=== PATIENT | male | born 1995 | race Caucasian/White ===

== ENCOUNTER 2021-01-11 12:10 | Emergency (ER) | payer SELFPAY ==
[2021-01-11] MEDS ORDERED: HALOPERIDOL 5 MG/ML VIAL IVP ONE (13:23)
[2021-01-11] MEDS ORDERED: HYDROmorphone 1 MG/ML CARPUJECT IVP STA (13:23)
[2021-01-11] MEDS ORDERED: SODIUM CHLORIDE 0.9% 1,000 ML IV STA (13:23)
[2021-01-11] MEDS ORDERED: diphenhydrAMINE INJ 50 MG/ML VIAL IVP STA (13:24)
--- NOTE | 2021-01-11 13:26 | ED Physician Documentation ---
PD HPI NVD - Stated complaint Stated Complaint: N/V,NUMB HANDS/LIPS - Chief complaint Chief Complaint: Abd Pain - History obtained from History obtained from: Patient - History of Present Illness Timing - onset: Last night Timing - duration: Hours Timing - details: Abrupt onset, Still present Associated symptoms: Abdominal pain, Dizzy Contributing factors: Other (stated canabis again) Improved by: Other (nothing) Worsened by: Other (nothing) Similar symptoms before: Diagnosis (canabis hyperemesis) Recently seen: Not recently seen - Additonal information Additional information: 25-year-old male has developed acute nausea and vomiting abdominal pain beginning in the middle of the night last night that has been unrelenting. He has no modifying factors for this to make it better or worse. He states something similar to this is happened to him previously he was diagnosed with cannabis hyperemesis he stopped smoking marijuana and he states that over sev eral weeks he had intermittent episodes. He has started again and out of nowhere he has developed symptoms again. He comes in to the ED today hyperventilating and in distress from pain and nausea. Review of Systems Constitutional: reports: Chills. denies: Fever Eyes: denies: Decreased vision Ears: denies: Ear pain Nose: denies: Congestion Throat: denies: Sore throat Cardiac: denies: Chest pain / pressure, Palpitations Respiratory: denies: Dyspnea, Cough GI: reports: Abdominal Pain, Nausea, Vomiting : denies: Dysuria, Frequency PD PAST MEDICAL HISTORY - Present Medications Home Medications: Ambulatory Orders Medication Instructions Recorded Confirmed Ondansetron Odt [Zofran] 4 mg TL Q6H PRN #10 tablet 01/11/21 - Allergies Allergies/Adverse Reactions: Allergies Allergy/AdvReac Type Severity Reaction Status Date / Time No Known Drug Allergies Allergy Verified 01/11/21 12:18 PD ED PE NORMAL - Vitals Vital signs reviewed: Yes (Afebrile and hypertensive diastolic) - General General: No acute distress, Well developed/nourished, Other (25-year-old male retching and clutching his abdomen is diaphoretic and hyperventilating.) - HEENT HEENT: Atraumatic, PERRL - Neck Neck: Supple, no meningeal sign, No bony TTP - Cardiac Cardiac: RRR, No murmur - Respiratory Respiratory: No respiratory distress, Clear bilaterally - Abdomen Abdomen: Normal bowel sounds, Soft, Non tender, Non distended, No organomegaly - Back Back: No CVA TTP, No spinal TTP - Derm Derm: Normal color, Warm and dry, No rash - Extremities Extremities: No deformity, No edema - Neuro Neuro: Alert and oriented X 3, solar consultant 2-12 intact, No motor deficit, No sensory deficit, Normal speech Eye Opening: Spontaneous Motor: Obeys Commands Verbal: Oriented GCS Score: 15 - Psych Psych: Normal affect, Other (Mood is anxious) Results - Vitals Vitals: Vital Signs - 24 hr 01/11/21 12:18 Temperature 36.5 C Heart Rate 80 Respiratory 24 Rate Blood Pressure 103/85 H O2 Saturation 100 Oxygen O2 Source Room air - Labs Labs: Laboratory Tests 01/11/21 01/11/21 13:22 13:22 WBC 17.7 H RBC 5.10 Hgb 15.1 Hct 43.7 MCV 85.7 MCH 29.6 MCHC 34.6 RDW 12.4 Plt Count 311 MPV 10.0 Neut # (Auto) 15.4 H Lymph # (Auto) 1.3 L [place] # (Auto) 0.9 Eos # (Auto) 0.0 Baso # (Auto) 0.1 Absolute Nucleated RBC 0.00 Nucleated RBC % 0.0 Sodium 142 Potassium 3.7 Chloride 105 Carbon Dioxide 19 L Anion Gap 18.0 H BUN 17 Creatinine 1.2 Estimated GFR (MDRD) 73 L Glucose 176 H Calcium 10.6 H Total Bilirubin 1.0 AST 38 ALT 42 Alkaline Phosphatase 59 Total Protein 8.8 H Albumin 5.6 H Globulin 3.2 Albumin/Globulin Ratio 1.8 Lipase 27 PD MEDICAL DECISION MAKING - ED course Complexity details: reviewed results, re-evaluated patient, considered differential, d/w patient ED course: 25-year-old male with acute abdominal pain nausea and vomiting has previously been diagnosed with cannabis hyperemesis syndrome and he has started smoking marijuana again. He has developed symptoms again. He is come to the emergency department in a sweat and in a panic. He is treated in the emergency department with saline Haldol Benadryl and Dilaudid. He has consistently had persistent symptoms and we have added Ativan into the mix and his symptoms improved.The patient is able to recall that he was last treated at [facility] and at that time they had given him some antipsychotic nausea medicine. We have administered an additional 2-1/2 mg of Inapsine. Departure - Departure Disposition: 01 Home, Self Care Clinical Impression: Cannabinoid hyperemesis syndrome Condition: Stable Instructions: ED Nausea Vomiting Follow-Up: [facility] [place] [Provider Group] Prescriptions: Ondansetron Odt [Zofran] 4 mg TL Q6H PRN #10 tablet PRN Reason: Nausea / Vomiting
[2021-01-11 13:38] LABS: BASOPHILS # (AUTO) 0.1 10^3/uL (0.0-0.1); BASOPHILS % (AUTO) 0.3 %; HCT - HEMATOCRIT 43.7 % (42.0-52.0); HGB - HEMOGLOBIN 15.1 g/dL (14.0-18.0); LYMPHOCYTES # (AUTO) 1.3 10^3/uL (1.5-3.5); LYMPHOCYTES % (AUTO) 7.4 %; MEAN CORPUSCULAR HEMOGLOBIN 29.6 pg (27.0-31.0); MEAN CORPUSCULAR HGB CONC 34.6 g/dL (32.0-36.0); MEAN CORPUSCULAR VOLUME 85.7 fL (80.0-94.0); MONOCYTES # (AUTO) 0.9 10^3/uL (0.0-1.0); NEUTROPHILS # (AUTO) 15.4 10^3/uL (1.5-6.6); NEUTROPHILS % (AUTO) 86.9 %; PLT - PLATELET COUNT 311 10^3/uL (130-450); RED CELL DISTRIBUTION WIDTH 12.4 % (12.0-15.0); WHITE BLOOD COUNT 17.7 x10^3/uL (4.8-10.8)
[2021-01-11 13:45] LABS: ALBUMIN 5.6 g/dL (3.2-5.5); ALBUMIN/GLOBULIN RATIO 1.8 (1.0-2.2); CALCIUM 10.6 mg/dL (8.5-10.3); CREATININE 1.2 mg/dL (0.6-1.2); POTASSIUM 3.7 mmol/L (3.5-5.0); TOTAL PROTEIN 8.8 g/dL (6.7-8.2)
[2021-01-11] MEDS ORDERED: LORazepam 2 MG/ML VIAL IVP STA (14:05)
[2021-01-11] MEDS ORDERED: DROPERIDOL 5 MG/2 ML VIAL IVP STA (15:33)
[2021-01-11 15:56] VITALS: BP 132/95
== END 2021-01-11 15:56 | disposition home or self-care (01) ==
LOC: ED 12:10
DX: R11.2 Nausea with vomiting, unspecified (principal)
CPT/HCPCS: 36415; 80053; 83690; 85025; 96374; 96375; 99284; 99285; J1170; J1200; J2060

== ENCOUNTER 2021-08-21 10:16 | Emergency (ER) | payer SELFPAY ==
--- NOTE | 2021-08-21 11:48 | ED Physician Documentation ---
PD HPI NVD - Stated complaint Stated Complaint: VOMITING - Chief complaint Chief Complaint: Abd Pain - History obtained from History obtained from: Patient - History of Present Illness Timing - onset: How many days ago (3) Timing - duration: Days (3) Timing - details: Abrupt onset, Still present, Constant Associated symptoms: Abdominal pain (upper abdomen), Loss of appetite. No: Fever, Chest pain, Near syncope / syncope, Weight loss Contributing factors: No: Sick contact, Bad food, Alcohol use (but has been using cannibis fairly regularly.) Improved by: Other (he states warm showers do help the symptoms.). No: Vomiting, Position Worsened by: Eating. No: Position Similar symptoms before: No diagnosis Recently seen: Not recently seen Review of Systems Constitutional: denies: Fever, Chills Eyes: denies: Decreased vision, Photophobia Nose: denies: Rhinorrhea / runny nose, Congestion Throat: reports: Sore throat (after reptitive vomiting, not prior.) Cardiac: denies: Chest pain / pressure, Palpitations Respiratory: denies: Dyspnea, Cough GI: reports: Abdominal Pain, Nausea, Vomiting. denies: Abdominal Swelling, Diarrhea Musculoskeletal: denies: Neck pain, Back pain Neurologic: reports: Generalized weakness. denies: Near syncope, Altered mental status PD PAST MEDICAL HISTORY - Past Medical History Cardiovascular: None Respiratory: None Neuro: None Endocrine/Autoimmune: None GI: GERD : None Musculoskeletal: None - Past Surgical History Past Surgical History: No - Present Medications Home Medications: Ambulatory Orders Medication Instructions Recorded Confirmed Famotidine [Pepcid] 20 mg PO DAILY #15 tablet 08/21/21 Promethazine [Phenergan] 25 mg PO Q6H PRN #20 tab 08/21/21 - Allergies Allergies/Adverse Reactions: Allergies Allergy/AdvReac Type Severity Reaction Status Date / Time No Known Drug Allergies Allergy Verified 08/21/21 10:25 - Social History Does the pt smoke?: No Smoking Status: Never smoker - POLST Patient has POLST: No PD ED PE NORMAL - Vitals Vital signs reviewed: Yes - General General: Alert and oriented X 3, Well developed/nourished, Other (appears in distress, dry heaving and holding emesis bag. ) - HEENT HEENT: Pharynx benign, Other (wet hair). No: Moist mucous membranes - Neck Neck: Supple, no meningeal sign, No adenopathy - Cardiac Cardiac: RRR, No murmur - Respiratory Respiratory: No respiratory distress, Clear bilaterally - Abdomen Abdomen: Soft, Non distended, No organomegaly, Other (tender upper abd/epigastric area, without rebound nor percussion tenderness. ). No: Normal bowel sounds (decreased) - Male Male : Deferred - Rectal Rectal: Deferred - Back Back: No CVA TTP - Derm Derm: Normal color - Extremities Extremities: No tenderness to palpate - Neuro Neuro: Alert and oriented X 3, No motor deficit, Normal speech Eye Opening: Spontaneous Motor: Obeys Commands Verbal: Oriented GCS Score: 15 - Psych Psych: No: Normal affect (anxious) Results - Vitals Vitals: Oxygen O2 Source Room air - Labs Labs: Laboratory Tests 08/21/21 08/21/21 12:05 12:05 WBC 14.7 H RBC 6.13 H Hgb 18.2 H Hct 50.8 MCV 82.9 MCH 29.7 MCHC 35.8 RDW 12.5 Plt Count 313 MPV 10.6 Neut # (Auto) 11.5 H Lymph # (Auto) 1.8 [place] # (Auto) 1.4 H Eos # (Auto) 0.0 Baso # (Auto) 0.0 Absolute Nucleated RBC 0.00 Nucleated RBC % 0.0 Sodium 139 Potassium 3.4 L Chloride 102 Carbon Dioxide 18 L Anion Gap 19.0 H BUN 53 H Creatinine 1.3 H Estimated GFR (MDRD) 66 L Glucose 122 H Calcium 10.9 H Magnesium 2.6 Total Bilirubin 1.9 H AST 60 H ALT 51 Alkaline Phosphatase 49 Total Protein 9.9 H Albumin 6.1 H Globulin 3.8 Albumin/Globulin Ratio 1.6 Lipase 33 PD MEDICAL DECISION MAKING - ED course Complexity details: re-evaluated patient (responded well to Inapsine, ativan, and Toradol. ), considered differential (likely cannibis hyperemesis. ), d/w patient Departure - Departure Disposition: 01 Home, Self Care Clinical Impression: Hyperemesis, Dehydration Nausea and vomiting Qualifiers: Vomiting type: unspecified Qualified Code(s): R11.2 - Nausea with vomiting, unspecified Condition: Stable Record reviewed to determine appropriate education?: Yes Instructions: ED Nausea Vomiting Prescriptions: Famotidine [Pepcid] 20 mg PO DAILY #15 tablet Promethazine [Phenergan] 25 mg PO Q6H PRN #20 tab PRN Reason: Nausea / Vomiting Comments: Your blood test did not show any significant electrolyte abnormalities. Your kidney function and blood count are consistent with dehydration. Try to stay well-hydrated through the next few days. Promethazine/Phenergan every 6-8 hours if needed for nausea. Your stomach will likely be irritated from all the vomiting so I would suggest also famotidine acid reducing medicine daily for the next 7 to 10 days. [place] food initially and progress diet as tolerated. Your episode may relate to an adverse effect of cannabis that can at times produce significant nausea and vomiting. Avoid cannabis use. Recheck if not resolved over the next day or 2 and return if worsening. I transmitted your prescriptions to [facility] pharmacy. Discharge Date/Time: 08/21/21 13:53
[2021-08-21] MEDS ORDERED: DROPERIDOL 5 MG/2 ML VIAL IVP STA (11:58)
[2021-08-21] MEDS ORDERED: SODIUM CHLORIDE 0.9% 1,000 ML IV STA (11:58)
[2021-08-21] MEDS ORDERED: KETOROLAC 30 MG/ML VIAL IVP STA (11:58)
[2021-08-21] MEDS ORDERED: LORazepam 2 MG/ML VIAL IVP STA (11:58)
[2021-08-21 12:11] LABS: BASOPHILS % (AUTO) 0.3 %; EOSINOPHILS % (AUTO) 0.1 %; HCT - HEMATOCRIT 50.8 % (42.0-52.0); HGB - HEMOGLOBIN 18.2 g/dL (14.0-18.0); LYMPHOCYTES # (AUTO) 1.8 10^3/uL (1.5-3.5); LYMPHOCYTES % (AUTO) 12.2 %; MEAN CORPUSCULAR HEMOGLOBIN 29.7 pg (27.0-31.0); MEAN CORPUSCULAR HGB CONC 35.8 g/dL (32.0-36.0); MEAN CORPUSCULAR VOLUME 82.9 fL (80.0-94.0); MEAN PLATELET VOLUME 10.6 fL (7.4-11.4); MONOCYTES # (AUTO) 1.4 10^3/uL (0.0-1.0); MONOCYTES % (AUTO) 9.2 %; NEUTROPHILS # (AUTO) 11.5 10^3/uL (1.5-6.6); NEUTROPHILS % (AUTO) 77.9 %; PLT - PLATELET COUNT 313 10^3/uL (130-450); RED BLOOD COUNT 6.13 10^6/uL (4.70-6.10); RED CELL DISTRIBUTION WIDTH 12.5 % (12.0-15.0); WHITE BLOOD COUNT 14.7 x10^3/uL (4.8-10.8)
[2021-08-21 12:24] LABS: ALBUMIN 6.1 g/dL (3.2-5.5); ALBUMIN/GLOBULIN RATIO 1.6 (1.0-2.2); BILIRUBIN,TOTAL 1.9 mg/dL (0.2-1.0); CALCIUM 10.9 mg/dL (8.5-10.3); CREATININE 1.3 mg/dL (0.6-1.2); MAGNESIUM 2.6 mg/dL (1.7-2.8); POTASSIUM 3.4 mmol/L (3.5-5.0); TOTAL PROTEIN 9.9 g/dL (6.7-8.2)
[2021-08-21 13:53] VITALS: BP 124/85
== END 2021-08-21 13:53 | disposition home or self-care (01) ==
LOC: ED 10:16
DX: E86.0 Dehydration (principal); R11.2 Nausea with vomiting, unspecified
CPT/HCPCS: 36415; 80053; 83690; 83735; 85025; 96361; 96374; 96375; 99282; 99283; J2060

== ENCOUNTER 2022-08-01 11:37 | Emergency (ER) | payer SELFPAY ==
[2022-08-01] MEDS ORDERED: SODIUM CHLORIDE 0.9% 1,000 ML IV STA (11:46)
[2022-08-01] MEDS ORDERED: DROPERIDOL 5 MG/2 ML VIAL IVP STA (11:46)
[2022-08-01] MEDS ORDERED: LORazepam 2 MG/ML VIAL IVP STA (11:46)
[2022-08-01] MEDS ORDERED: KETOROLAC 15 MG/ML VIAL IVP STA (11:46)
--- NOTE | 2022-08-01 11:47 | ED Physician Documentation ---
PD HPI NVD - Stated complaint Stated Complaint: VOMITTING/ABD PX - History obtained from History obtained from: Patient - Additonal information Additional information: 27-year-old gentleman with history of GI issues and cannabis hyperemesis presents with 3 days of vomiting. On the first day he had diarrhea but has not had a bowel movement since. He has upper abdominal pain with this. He states it is different than prior episodes of cannabis hyperemesis and that previously he only had severe nausea and had to make himself throw up, but with the current illness, he is throwing up. No sick contacts or recent travel. No fevers. No history of abdominal surgeries but has had colonoscopy in the past with findings of polyps. PD PAST MEDICAL HISTORY - Past Medical History Cardiovascular: None Respiratory: None Neuro: None Endocrine/Autoimmune: None GI: GERD : None Musculoskeletal: None - Past Surgical History Past Surgical History: No - Present Medications Home Medications: Ambulatory Orders Medication Instructions Recorded Confirmed Famotidine [Pepcid] 20 mg PO DAILY #15 tablet 08/21/21 Promethazine [Phenergan] 25 mg PO Q6H PRN #20 tab 08/21/21 Ondansetron Odt [Zofran] 4 mg TL Q6H PRN #10 tablet 08/01/22 Promethazine [Phenergan] 25 mg PO Q6H PRN #10 tab 08/01/22 - Allergies Allergies/Adverse Reactions: Allergies Allergy/AdvReac Type Severity Reaction Status Date / Time No Known Drug Allergies Allergy Verified 08/21/21 10:25 - Social History Does the pt smoke?: No Smoking Status: Never smoker - POLST Patient has POLST: No PD ED PE NORMAL - Vitals Vital signs reviewed: Yes - General General: Alert and oriented X 3, Other (Appears uncomfortable but not actively vomiting) - Cardiac Cardiac: RRR, No murmur - Respiratory Respiratory: No respiratory distress, Clear bilaterally - Abdomen Abdomen: Normal bowel sounds, Soft, Non tender - Neuro Neuro: Alert and oriented X 3, Normal speech - Psych Psych: Normal mood, Normal affect Results - Vitals Vitals: Vital Signs - 24 hr 08/01/22 08/01/22 08/01/22 11:43 12:45 13:40 Temperature 36.5 C 36.9 C 37.0 C Heart Rate 74 83 89 Respiratory 22 18 18 Rate Blood Pressure 152/109 H 118/76 140/87 H O2 Saturation 98 96 97 Oxygen O2 Source Room air - Labs Labs: Laboratory Tests 08/01/22 08/01/22 11:54 11:54 WBC 15.7 H RBC 5.96 Hgb 17.1 Hct 49.8 MCV 83.6 MCH 28.7 MCHC 34.3 RDW 12.7 Plt Count 348 MPV 10.3 Neut # (Auto) 11.8 H Lymph # (Auto) 2.5 [place] # (Auto) 1.3 H Eos # (Auto) 0.0 Baso # (Auto) 0.1 Absolute Nucleated RBC 0.00 Nucleated RBC % 0.0 Sodium 138 Potassium 3.2 L Chloride 104 Carbon Dioxide 19 L Anion Gap 15.0 H BUN 35 H Creatinine 1.3 H Estimated GFR (MDRD) 65 L Glucose 132 H Calcium 10.3 Total Bilirubin 1.3 H AST 50 H ALT 34 Alkaline Phosphatase 63 Total Protein 9.8 H Albumin 6.2 H Globulin 3.6 Albumin/Globulin Ratio 1.7 Lipase 32 PD Medical Decision Making - ED course Complexity details: reviewed results (CBC reviewed, modest leukocytosis consistent with prior episodes of vomiting here. CMP reviewed with mild hypokalemia and mild TALON and acidosis. Also mild elevation of liver enzymes, less than on his last visit.) ED course: 27-year-old with upper abdominal pain and vomiting. He has a benign exam. Could be exacerbation of cannabinoid hyperemesis, gastroenteritis, PUD versus gastritis. Appendicitis or other intra-abdominal surgical emergency is very unlikely given his exam. He was administered IV fluids, IV Toradol, IV droperidol, and IV Ativan. On recheck around 1 PM he was sleeping comfortably and we started p.o. challenge. We repleted his potassium orally. He did very well with this and on reexamination at 1:50 PM he was nontender and only had very mild pain and requested discharge. Departure - Departure Disposition: 01 Home, Self Care Clinical Impression: Vomiting, Abdominal pain Condition: Good Record reviewed to determine appropriate education?: Yes Instructions: ED Nausea Vomiting, ED Abdominal Pain Unkn Cause Male Prescriptions: Promethazine [Phenergan] 25 mg PO Q6H PRN #10 tab PRN Reason: Nausea / Vomiting Ondansetron Odt [Zofran] 4 mg TL Q6H PRN #10 tablet PRN Reason: Nausea / Vomiting Comments: [facility] [place] Return in 24 hours if not better, sooner if worse or new symptoms develop. Follow-up with your primary care physician, next available appointment.
[2022-08-01 11:59] LABS: BASOPHILS # (AUTO) 0.1 10^3/uL (0.0-0.1); BASOPHILS % (AUTO) 0.3 %; HCT - HEMATOCRIT 49.8 % (42.0-52.0); HGB - HEMOGLOBIN 17.1 g/dL (14.0-18.0); LYMPHOCYTES # (AUTO) 2.5 10^3/uL (1.5-3.5); LYMPHOCYTES % (AUTO) 16.2 %; MEAN CORPUSCULAR HEMOGLOBIN 28.7 pg (27.0-31.0); MEAN CORPUSCULAR HGB CONC 34.3 g/dL (32.0-36.0); MEAN CORPUSCULAR VOLUME 83.6 fL (80.0-94.0); MEAN PLATELET VOLUME 10.3 fL (7.4-11.4); MONOCYTES # (AUTO) 1.3 10^3/uL (0.0-1.0); NEUTROPHILS # (AUTO) 11.8 10^3/uL (1.5-6.6); NEUTROPHILS % (AUTO) 75.1 %; PLT - PLATELET COUNT 348 10^3/uL (130-450); RED BLOOD COUNT 5.96 10^6/uL (4.70-6.10); RED CELL DISTRIBUTION WIDTH 12.7 % (12.0-15.0); WHITE BLOOD COUNT 15.7 x10^3/uL (4.8-10.8)
[2022-08-01 12:15] LABS: ALBUMIN 6.2 g/dL (3.2-5.5); ALBUMIN/GLOBULIN RATIO 1.7 (1.0-2.2); BILIRUBIN,TOTAL 1.3 mg/dL (0.2-1.0); CALCIUM 10.3 mg/dL (8.5-10.3); CREATININE 1.3 mg/dL (0.6-1.2); POTASSIUM 3.2 mmol/L (3.5-5.0); TOTAL PROTEIN 9.8 g/dL (6.7-8.2)
[2022-08-01] MEDS ORDERED: POTASSIUM CHLORIDE 20 MEQ TABLET PO STA (12:46)
[2022-08-01 13:40] VITALS: BP 140/87
== END 2022-08-01 13:59 | disposition home or self-care (01) ==
LOC: ED 11:37
DX: R11.10 Vomiting, unspecified (principal); R10.10 Upper abdominal pain, unspecified; E87.6 Hypokalemia
CPT/HCPCS: 36415; 80053; 83690; 85025; 96374; 99283; A9270; J2060

== ENCOUNTER 2022-08-02 03:10 | Emergency (ER) | payer SELFPAY ==
--- NOTE | 2022-08-02 03:16 | ED Physician Documentation ---
PD HPI NVD - Stated complaint Stated Complaint: ABD PX/N/V - History obtained from History obtained from: Patient - Additonal information Additional information: HPI from patient. Patient was treated and released from this emergency department yesterday for same symptoms. Patient complains of 3 days of nausea and vomiting, anxiety and insomnia. He has been having intermittent diffuse abdominal cramping. He had diarrhea towards the beginning of the illness but that has resolved. He was prescribed Phenergan and Zofran, and he says that these medications have not provided adequate relief this evening as the symptoms have recurred since he was discharged yesterday. Review of Systems Constitutional: denies: Fever Cardiac: reports: Reviewed and negative Respiratory: reports: Reviewed and negative GI: reports: Abdominal Pain, Nausea, Vomiting. denies: Constipation, Diarrhea PD PAST MEDICAL HISTORY - Past Medical History Cardiovascular: None Respiratory: None Neuro: None Endocrine/Autoimmune: None GI: GERD : None Musculoskeletal: None - Past Surgical History Past Surgical History: No - Present Medications Home Medications: Ambulatory Orders Medication Instructions Recorded Confirmed Famotidine [Pepcid] 20 mg PO DAILY #15 tablet 08/21/21 Promethazine [Phenergan] 25 mg PO Q6H PRN #20 tab 08/21/21 Ondansetron Odt [Zofran] 4 mg TL Q6H PRN #10 tablet 08/01/22 Promethazine [Phenergan] 25 mg PO Q6H PRN #10 tab 08/01/22 LORazepam [Ativan] 1 mg PO Q6HR PRN #14 tablet 08/02/22 - Allergies Allergies/Adverse Reactions: Allergies Allergy/AdvReac Type Severity Reaction Status Date / Time No Known Drug Allergies Allergy Verified 08/21/21 10:25 - Social History Does the pt smoke?: No Smoking Status: Never smoker Does the pt drink ETOH?: Yes Does the pt have substance abuse?: Yes - POLST Patient has POLST: No PD ED PE NORMAL - Vitals Vital signs reviewed: Yes - General General: Alert and oriented X 3, Well developed/nourished, Other (Patient appears anxious and apprehensive though he is polite and cooperative) - HEENT HEENT: PERRL, EOMI, Moist mucous membranes - Cardiac Cardiac: RRR, No murmur - Respiratory Respiratory: No respiratory distress, Clear bilaterally - Abdomen Abdomen: Normal bowel sounds, Soft, Non tender, Non distended - Derm Derm: Normal color, Warm and dry Results - Vitals Vitals: Vital Signs - 24 hr 08/02/22 08/02/22 08/02/22 03:20 03:30 04:46 Temperature 37.1 C 37.2 C Heart Rate 89 64 98 Respiratory 22 19 14 Rate Blood Pressure 150/112 H 150/112 H 113/64 O2 Saturation 99 97 97 Oxygen O2 Source Room air - Labs Labs: Laboratory Tests 08/02/22 08/02/22 03:18 03:18 WBC 14.4 H RBC 6.00 Hgb 17.2 Hct 50.4 MCV 84.0 MCH 28.7 MCHC 34.1 RDW 12.6 Plt Count 340 MPV 10.4 Neut # (Auto) 10.6 H Lymph # (Auto) 2.4 [place] # (Auto) 1.3 H Eos # (Auto) 0.0 Baso # (Auto) 0.1 Absolute Nucleated RBC 0.00 Nucleated RBC % 0.0 Sodium 142 Potassium 3.5 Chloride 107 Carbon Dioxide 19 L Anion Gap 16.0 H BUN 33 H Creatinine 1.2 Estimated GFR (MDRD) 72 L Glucose 128 H Calcium 10.0 Total Bilirubin 1.7 H AST 58 H ALT 41 Alkaline Phosphatase 58 Total Protein 9.3 H Albumin 5.8 H Globulin 3.5 Albumin/Globulin Ratio 1.7 Lipase 34 PD Medical Decision Making - ED course Complexity details: reviewed old records, reviewed results, re-evaluated patient, considered differential, d/w patient ED course: Tests ordered and results reviewed by me: CBC, ER abdominal panel. He has mild leukocytosis with white blood cell count 14.4, though this is improved from yesterday's result (15.7). Tonight his BUN is 33 with a creatinine of 1.2, both results also represent mild improvement compared to yesterday. IV is established and he is given 1 L normal saline IV fluid bolus as well as intravenous Toradol, droperidol, and Ativan. He is also given IV Protonix. On reevaluation, patient is resting comfortably, NAD, reports excellent relief of symptoms and is comfortable with being discharged home. Departure - Departure Disposition: 01 Home, Self Care Clinical Impression: Vomiting Condition: Good Instructions: ED Vomiting Diarrhea Nonspecific Ad Prescriptions: LORazepam [Ativan] 1 mg PO Q6HR PRN #14 tablet PRN Reason: Anxiety Comments: Your lab test results are reassuring, with mildly elevated white blood cell count and kidney tests, but these are improved compared to yesterday's results. I have electronically submitted a prescription for lorazepam to the [facility] pharmacy in [place]. This is to be used per the label instructions every 6 hours as needed for symptoms including anxiety. This can also help with sleep. Contact your primary care provider this morning when their office opens to arrange for next available appointment. Discharge Date/Time: 08/02/22 04:53
[2022-08-02] MEDS ORDERED: DROPERIDOL 5 MG/2 ML VIAL IVP STA (03:39)
[2022-08-02] MEDS ORDERED: SODIUM CHLORIDE 0.9% 1,000 ML IV STA (03:39)
[2022-08-02] MEDS ORDERED: PANTOPRAZOLE 40 MG VIAL IVP STA (03:40)
[2022-08-02] MEDS ORDERED: LORazepam 2 MG/ML VIAL IVP STA (03:40)
[2022-08-02] MEDS ORDERED: KETOROLAC 30 MG/ML VIAL IVP STA (03:40)
[2022-08-02 03:45] LABS: BASOPHILS # (AUTO) 0.1 10^3/uL (0.0-0.1); BASOPHILS % (AUTO) 0.4 %; HCT - HEMATOCRIT 50.4 % (42.0-52.0); HGB - HEMOGLOBIN 17.2 g/dL (14.0-18.0); LYMPHOCYTES # (AUTO) 2.4 10^3/uL (1.5-3.5); LYMPHOCYTES % (AUTO) 16.3 %; MEAN CORPUSCULAR HEMOGLOBIN 28.7 pg (27.0-31.0); MEAN CORPUSCULAR HGB CONC 34.1 g/dL (32.0-36.0); MEAN PLATELET VOLUME 10.4 fL (7.4-11.4); MONOCYTES # (AUTO) 1.3 10^3/uL (0.0-1.0); MONOCYTES % (AUTO) 9.3 %; NEUTROPHILS # (AUTO) 10.6 10^3/uL (1.5-6.6); NEUTROPHILS % (AUTO) 73.7 %; PLT - PLATELET COUNT 340 10^3/uL (130-450); RED CELL DISTRIBUTION WIDTH 12.6 % (12.0-15.0); WHITE BLOOD COUNT 14.4 x10^3/uL (4.8-10.8)
[2022-08-02 03:58] LABS: ALBUMIN 5.8 g/dL (3.2-5.5); ALBUMIN/GLOBULIN RATIO 1.7 (1.0-2.2); BILIRUBIN,TOTAL 1.7 mg/dL (0.2-1.0); CREATININE 1.2 mg/dL (0.6-1.2); POTASSIUM 3.5 mmol/L (3.5-5.0); TOTAL PROTEIN 9.3 g/dL (6.7-8.2)
[2022-08-02 04:47] VITALS: BP 113/64
== END 2022-08-02 04:53 | disposition home or self-care (01) ==
LOC: ED 03:10
DX: R11.10 Vomiting, unspecified (principal)
CPT/HCPCS: 36415; 80053; 83690; 85025; 96361; 96374; 96375; 99283; 99285; J2060

== ENCOUNTER 2022-12-16 11:06 | Emergency (ER) | payer SELFPAY ==
[2022-12-16] MEDS ORDERED: ONDANSETRON 4 MG/2 ML VIAL IVP STA (11:29)
[2022-12-16] MEDS ORDERED: SODIUM CHLORIDE 0.9% 1,000 ML IV STA (11:29)
[2022-12-16] MEDS ORDERED: KETOROLAC 15 MG/ML VIAL IVP STA (11:40)
[2022-12-16] MEDS ORDERED: HALOPERIDOL 5 MG/ML VIAL IVP STA (11:40)
[2022-12-16 11:43] LABS: BASOPHILS % (AUTO) 0.3 %; HCT - HEMATOCRIT 48.5 % (42.0-52.0); LYMPHOCYTES # (AUTO) 2.1 10^3/uL (1.5-3.5); MEAN CORPUSCULAR HEMOGLOBIN 29.2 pg (27.0-31.0); MEAN CORPUSCULAR HGB CONC 35.1 g/dL (32.0-36.0); MEAN CORPUSCULAR VOLUME 83.2 fL (80.0-94.0); MEAN PLATELET VOLUME 10.7 fL (7.4-11.4); MONOCYTES # (AUTO) 1.5 10^3/uL (0.0-1.0); NEUTROPHILS # (AUTO) 10.2 10^3/uL (1.5-6.6); NEUTROPHILS % (AUTO) 73.3 %; PLT - PLATELET COUNT 335 10^3/uL (130-450); RED BLOOD COUNT 5.83 10^6/uL (4.70-6.10); RED CELL DISTRIBUTION WIDTH 12.5 % (12.0-15.0); WHITE BLOOD COUNT 13.9 x10^3/uL (4.8-10.8)
--- NOTE | 2022-12-16 11:43 | ED Physician Documentation ---
PD HPI ABD PAIN - Stated complaint Stated Complaint: N/V - Chief complaint Chief Complaint: Abd Pain - History obtained from History obtained from: Patient - Additional information Additional information: 27-year-old male with a past medical history of cyclic vomiting possible cannabis hyperemesis syndrome presents with 4 days of nausea vomiting abdominal cramping. He states this feels worse than prior episodes, he has not been able to take anything including water and has been persistently vomiting over the last several days. He has not had any diarrhea or constipation, no urinary symptoms, no fever or chills. He does continue to smoke marijuana but states he has "been doing it my whole life so I do not think it is causing my symptoms." He denies any recent travel, atypical food or water sources, or sick contacts. He did attempt to have a leftover promethazine earlier today without improvement in his symptoms. Review of Systems Constitutional: reports: Reviewed and negative Cardiac: reports: Reviewed and negative Respiratory: reports: Reviewed and negative GI: reports: Abdominal Pain, Nausea, Vomiting. denies: Abdominal Swelling, Constipation, Diarrhea, Hematemesis, Bloody / black stool : reports: Reviewed and negative Skin: reports: Reviewed and negative Musculoskeletal: reports: Reviewed and negative Neurologic: reports: Near syncope. denies: Generalized weakness, Focal weakness, Numbness, Difficulty speaking, Syncope, Seizure, Confused, Altered mental status, Unresponsive, Headache, Head injury, LOC Psychiatric: reports: Reviewed and negative Endocrine: reports: Reviewed and negative PD PAST MEDICAL HISTORY - Past Medical History Past Medical History: Yes Cardiovascular: None Respiratory: None Neuro: None Endocrine/Autoimmune: None GI: GERD, Other (cyclic vomiting) : None Musculoskeletal: None - Past Surgical History Past Surgical History: No - Present Medications Home Medications: Ambulatory Orders Medication Instructions Recorded Confirmed Famotidine [Pepcid] 20 mg PO DAILY #15 tablet 08/21/21 Promethazine [Phenergan] 25 mg PO Q6H PRN #20 tab 08/21/21 Ondansetron Odt [Zofran] 4 mg TL Q6H PRN #10 tablet 08/01/22 Promethazine [Phenergan] 25 mg PO Q6H PRN #10 tab 08/01/22 LORazepam [Ativan] 1 mg PO Q6HR PRN #14 tablet 08/02/22 Ondansetron Odt [Zofran] 4 mg TL Q6H PRN #10 tablet 12/16/22 Promethazine [Phenergan] 25 mg PO Q6H PRN #10 tablet 12/16/22 - Allergies Allergies/Adverse Reactions: Allergies Allergy/AdvReac Type Severity Reaction Status Date / Time No Known Drug Allergies Allergy Verified 08/21/21 10:25 - Social History Does the pt smoke?: No Smoking Status: Never smoker Does the pt drink ETOH?: Yes Does the pt have substance abuse?: Yes - Immunizations Immunizations are current?: Yes - POLST Patient has POLST: No PD ED PE NORMAL - Vitals Vital signs reviewed: Yes - General General: Alert and oriented X 3, No acute distress, Well developed/nourished - HEENT HEENT: Atraumatic, Moist mucous membranes, Pharynx benign - Cardiac Cardiac: RRR, No murmur, No gallop, No rub, Strong equal pulses - Respiratory Respiratory: No respiratory distress, Clear bilaterally - Abdomen Abdomen: Normal bowel sounds, Soft, Non tender, Non distended, No organomegaly - Derm Derm: Normal color, Warm and dry, No rash - Extremities Extremities: No deformity, No tenderness to palpate, Normal ROM s pain, No edema - Neuro Neuro: Alert and oriented X 3 Eye Opening: Spontaneous Motor: Obeys Commands Verbal: Oriented GCS Score: 15 - Psych Psych: Normal mood, Normal affect Results - Vitals Vitals: Vital Signs - 24 hr 12/16/22 12/16/22 12/16/22 11:10 13:27 14:14 Temperature 37.1 C 37.0 C Heart Rate 101 H 69 70 Respiratory 22 12 16 Rate Blood Pressure 147/119 H 124/69 122/70 O2 Saturation 99 69 L 98 Oxygen O2 Source Room air - Labs Labs: Laboratory Tests 12/16/22 12/16/22 11:21 11:21 WBC 13.9 H RBC 5.83 Hgb 17.0 Hct 48.5 MCV 83.2 MCH 29.2 MCHC 35.1 RDW 12.5 Plt Count 335 MPV 10.7 Neut # (Auto) 10.2 H Lymph # (Auto) 2.1 [place] # (Auto) 1.5 H Eos # (Auto) 0.0 Baso # (Auto) 0.0 Absolute Nucleated RBC 0.00 Nucleated RBC % 0.0 Manual Slide Review Indicated WBC Morphology NORMAL APPEARANCE Platelet Estimate NORMAL (130-450,000) Platelet Morphology NORMAL APPEARANCE RBC Morph Micro Appear NORMAL APPEARANCE Sodium 135 Potassium 3.3 L Chloride 98 L Carbon Dioxide 22 Anion Gap 15.0 H BUN 49 H Creatinine 1.3 Estimated GFR (MDRD) 65 L Glucose 114 H Calcium 10.9 H Total Bilirubin 2.1 H AST 71 H ALT 49 Alkaline Phosphatase 55 Total Protein 9.2 H Albumin 5.7 H Globulin 3.5 Albumin/Globulin Ratio 1.6 Lipase 12 PD Medical Decision Making - ED course Complexity details: reviewed old records, reviewed results, re-evaluated patient, considered differential, d/w patient ED course: 27-year-old male with a past medical history of cyclic vomiting or cannabinoid hyperemesis presents with nausea vomiting abdominal cramping Similar to prior episodes. We placed an IV, obtain labs and give the patient a total of 2 L of IV fluids, 4 mg of Zofran and 2 mg of IV Haldol with resolution of his vomiting. He was able to tolerate apple juice, crackers and applesauce. . His labs are reviewed and are generally stable, he is mildly hypokalemic and dehydrated prior to labs so I anticipate that this has improved. The patient was strongly urged to stop smoking marijuana as this may be the cause of his symptoms though other etiology of cyclic vomiting not excluded. He was encouraged to follow-up with his PCP and a GI specialist for ongoing symptoms. Departure - Departure Disposition: 01 Home, Self Care Clinical Impression: Cyclic vomiting syndrome Condition: Good Instructions: Diet Clear Liquid Dc, ED Nausea Vomiting Prescriptions: Promethazine [Phenergan] 25 mg PO Q6H PRN #10 tablet PRN Reason: Nausea / Vomiting Ondansetron Odt [Zofran] 4 mg TL Q6H PRN #10 tablet PRN Reason: Nausea / Vomiting Comments: Your vomiting may be due to Cyclic vomiting syndrome or due to ongoing marijuana use. Try to stop using marijauna for several months to see if this improves your symptoms. Stick to a bland diet today, mostly clear liquids and things like toast or crackers, and then you can advance as tolerated. I have prescribed some additional nausea medication to use at home as needed if recurrent symptoms. If you have not seen a GI specialist in the past, I do recommend that you schedule a follow-up with 1 and this can be done via your primary care provider. Forms: PCP List Discharge Date/Time: 12/16/22 14:14
[2022-12-16 11:44] LABS: SLIDE REVIEW? Indicated
[2022-12-16 11:45] LABS: PLATELET ESTIMATE, MANUAL NORMAL (130-450,000) (NORMAL); PLATELET MORPHOLOGY NORMAL APPEARANCE (NORMAL); RBC MORPHOLOGY (MULTIPLE) NORMAL APPEARANCE (NORMAL); WBC MORPHOLOGY (MULTIPLE) NORMAL APPEARANCE (NORMAL)
[2022-12-16 11:58] LABS: ALBUMIN 5.7 g/dL (3.2-5.5); ALBUMIN/GLOBULIN RATIO 1.6 (1.0-2.2); BILIRUBIN,TOTAL 2.1 mg/dL (0.2-1.0); CALCIUM 10.9 mg/dL (8.5-10.3); CREATININE 1.3 mg/dL (0.6-1.3); POTASSIUM 3.3 mmol/L (3.5-4.5); TOTAL PROTEIN 9.2 g/dL (6.4-8.9)
[2022-12-16] MEDS ORDERED: LACTATED RINGERS 1,000 ML IV STA (12:02)
[2022-12-16 14:18] VITALS: BP 122/70; O2SAT 98
== END 2022-12-16 14:14 | disposition home or self-care (01) ==
LOC: ED 11:06
DX: R11.15 Cyclical vomiting syndrome unrelated to migraine (principal)
CPT/HCPCS: 80053; 83690; 85025; 96361; 96374; 96375; 99283; J7120; 36415